=== PATIENT | born 1995 | race Asian ===

== ENCOUNTER 2025-08-22 15:49 | Outpatient (CLI) | payer BC, SELFPAY ==
[2025-08-25 09:56] LABS: HPV Source Endocervical
[2025-08-28 09:01] LABS: Pap Test Digital Imaging Done
== END 2025-08-22 15:50 | disposition home or self-care (01) ==
PROVIDERS: PCP Family Medicine; Visit Provider Family Medicine
DX: Z00.00 Encounter for general adult medical examination without abnormal findings (principal)
CPT/HCPCS: 87624; 87625; 88141; 88142; 88175